=== PATIENT | female | born 1990 | race Caucasian/White ===

== ENCOUNTER 2018-04-14 06:03 | Inpatient (IN) | payer OTHER ==
[~2018-04-14] VITALS: Ht 170.2 cm; Wt 79.4 kg
[~2018-04-14 06:03] MED LIST: DOCUSATE SODIU100 M3 PO; IBUPROFEN800 M1 PO; PERCOCET 5-3251 EACH PO; PRENATAL TABLE1 EAC2 PO
[2018-04-14 06:37] VITALS: BP 109/58
--- NOTE | 2018-04-14 08:51 | Operative Report ---
Operative/Inv Procedure Report Surgery Date: 04/14/18 Name of Procedure: Repeat low flap a section via Pfannenstiel skin incision Pre-Operative Diagnosis: Previous section Term Post-Operative Diagnosis: Same macrosomia Estimated Blood Loss: scant Surgeon/Certified Welder: Hamlet OLIVIA,Arabella Loeraand [facility] Anesthesia: block Operative/Procedure Note Note: Procedure note patient was taken the operating room placed on position after adequate anesthesia patient placed in dorsolithotomy position vagina from dorsal fashion bladder was catheterized using Harvey patient was hit had a hip wedge timeout was performed through an old Pfannenstiel skin incision skin was cut was carried down to rectus fascia using a Bovie hemostasis was apparent on the rectus fascia and the rectus sheath was dissected bluntly off of the peritoneum peritoneum was entered bluntly low blade the Pierpont was placed and lower in the incision the visceral peritoneum of the uterus was dissected anteriorly to develop a bladder flap in the lower uterine segment uterus was nicked entered with the back of the knife dissected bluntly as well as sharply all instruments removed from the field the was delivered over the abdominal wall cord was around the baby's neck 3 was reduced cord was clamped cut the infant was handed to returns supervisor was waiting delivering to aid in resuscitation placenta was delivered manually noted to be intact was wiped clean with 2 wet dry last insurance free of adherent membranes oversewn running locked suture was indicated interrupted [id number] is well uses turned to abdominal cavity found to be hemostatic the peritoneum was reapproximated 0 the fascia was reapproximated to continue sutures #1 skin was reapproximated micki at the end the case urine was clear counts correct on patient was transferred to the unit and informed to the status
--- NOTE | 2018-04-14 08:53 | History & Physical Pre-Op ---
General Information and HPI MD Statement: I have seen and personally examined SUHAS JEFFRIES and documented this H&P. The patient is a 28 year old F who presented with a patient stated chief complaint of here to have a baby by section []. History of Present Illness: A 28-year-old 2 para 1001 on at 41 weeks' gestation who presents with late care previous section and having had intentions of trial of labor. Patient and I discussed the estimated weight of the and she has change her mind and decided to have a repeat section Allergies/Medications Allergies: Coded Allergies: No Known Allergies (04/09/16) Home Med list Vit No.130/Iron/FA ( Tablet) 27 MG IRON-800 MCG TABLET 1 TAB PO DAILY (Reported) Past History Medical History Isolation History: Standard Surgical History Pertinent Surgical History: N Past Family/Social History Psychosocial History Smoking Status: Never Smoked Review of Systems Review of Systems: -13 point review of systems as stated in the HPI Exam & Diagnostic Data Last 24 Hrs of Vital Signs/I&O Vital Signs Date Time Temp Pulse Resp B/P B/P Pulse O2 O2 Flow FiO2 Mean Ox Delivery Rate 04/14 0637 109/58 Intake & Output 04/14 1600 04/14 0800 04/14 0000 Intake Total Output Total Balance Patient 175 lb Weight Physical Exam: She is a petite white female HEENT anicteric Lungs clear Heart S1 and S2 Abdomen soft estimated weight is 4000 g Pelvic is 2 cm 90% vertex Extremities negative edema Assessment/Plan Assessment/Plan: Assessment is term previous section macrosomia 40+ weeks gestation plan is for section As Ranked By This Provider Problem List: 1.
[2018-04-15 08:53] LABS: ABSOLUTE BASOPHIL COUNT 0 /CUMM (0.0-0.2); ABSOLUTE EOSINOPHIL COUNT 0.1 /CUMM (0.0-0.7); ABSOLUTE GRANULOCYTE CT 6.8 /CUMM (1.4-6.5); ABSOLUTE LYMPH COUNT 2.7 /CUMM (1.2-3.4); ABSOLUTE MONOCYTE COUNT 1.1 /CUMM (0.10-0.60); BASOPHIL % 0.3 % (0.0-2.0); EOSINOPHIL % 0.6 % (0-5); GRANULOCYTE % 63.6 % (42.2-75.2); MEAN CORPUSCULAR HGB 29.7 PG (27.0-31.0); MEAN CORPUSCULAR HGB CONC 33.5 G/DL (33.0-37.0); MEAN CORPUSCULAR VOLUME 88.7 FL (81.0-99.0); MEAN PLATELET VOLUME 9.7 FL (7.4-10.4); PLATELET COUNT 189 /CUMM (130-400); RBC DISTRIBUTION WIDTH 17.1 % (11.5-14.5); RED BLOOD CELL CT 3.23 /CUMM (4.20-5.40); WHITE BLOOD CELL COUNT 10.7 /CUMM (4.8-10.8)
[2018-04-15 11:28] LABS: HEMATOCRIT 28.6 % (37-47)
--- NOTE | 2018-04-15 11:31 | PN- Post Delivery/GYN ---
Subjective Subjective: doing well Review of Systems: pos flatus Objective Last 24 Hrs of Vital Signs/I&O vss afebrile Physical Exam: abd soft NT, incision c/d/i ext: nt Assessment/Plan Assessment/Plan s/p c/s pod1 stable d/c sellers advance diet increase activity Problem List: 1. S/P
--- NOTE | 2018-04-16 11:21 | PN- Post Delivery/GYN ---
Subjective Subjective: No complaint, desires early discharge Review of Systems: Patient's passing flatus, ambulating, tolerating regular diet Objective Last 24 Hrs of Vital Signs/I&O Vital signs stable, afebrile Physical Exam: Abdomen is soft fundus firm Incision clean dry and intact Extremities nontender Assessment/Plan Assessment/Plan Status post postop day 2 she desiring early discharge discharge and is stable Plan: Discharge home Problem List: 1. S/P
[2018-04-16] MEDS ORDERED: PERCOCET 5-3251 EACH PO (11:24)
[2018-04-16] MEDS ORDERED: DOCUSATE SODIU100 M3 PO (11:24)
[2018-04-16] MEDS ORDERED: IBUPROFEN800 M1 PO (11:24)
== END 2018-04-16 17:35 | DRG 540 ==
LOC: GNO 06:03
PROVIDERS: Specialist
PROC: 10D00Z1 Extraction of Products of Conception, Low, Open Approach (ICD-10-PCS; principal; 2018-04-14)
DX: O36.63X0 Maternal care for excessive fetal growth, third trimester, not applicable or unspecified (principal); O34.211 Maternal care for low transverse scar from previous cesarean delivery; N85.8 Other specified noninflammatory disorders of uterus; O69.81X0 Labor and delivery complicated by cord around neck, without compression, not applicable or unspecified; Z3A.40 40 weeks gestation of pregnancy; Z37.0 Single live birth
CPT/HCPCS: GNOS; 81001; 87086; J0131; J0690; J1650; J1885; J2210; J7120

== ENCOUNTER 2018-04-24 20:23 | Emergency (ER) | payer OTHER ==
[~2018-04-24] VITALS: Ht 165.1 cm; Wt 65.8 kg
[2018-04-24 20:49] VITALS: BP 123/70
--- NOTE | 2018-04-24 20:50 | ED THROAT/DENTAL COMPLAINT ---
History of Present Illness General Chief Complaint: Sore Throat, Dental Pain Stated Complaint: TOOTH ACHE Source: patient, family, old records Exam Limitations: no limitations Vital Signs & Intake/Output Vital Signs & Intake/Output Vital Signs Date Time Temp Pulse Resp B/P B/P Pulse O2 O2 Flow FiO2 Mean Ox Delivery Rate 04/24 2049 98.2 80 16 123/70 99 Room Air Room Air Allergies Coded Allergies: No Known Allergies (04/24/18) Triage Note: PT TO TRIAGE WOTH RIGHT LOWER JAW PAIN WITH SWELLING. PT SAW HER DENTIST TODAY AND WAS RX ABX AND IBUPROPHEN. PT STATES PAIN HAS NOT BEEN CONTROLLED AND IS LOOKING FOR SOMETHING STRONGER Triage Nurses Notes Reviewed? yes : No Patient currently breastfeeds: No HPI: Patient is 10 days and is actively breast-feeding. Patient developed a toothache in her right lower molar area. Patient was seen by her dentist today and was put on ibuprofen and penicillin. Patient states that when she takes ibuprofen the pain gets better for about 2 hours but then the pain returns. The pain is throbbing in nature. There is no radiation. At its worst the pain is 8 out of 10. There are no fevers or chills. There is no difficulty breathing or swallowing. Past History Travel History Traveled to [place] past 21 day No Medical History Any Pertinent Medical History? none Neurological: NONE EENT: NONE Cardiovascular: NONE Respiratory: NONE Gastrointestinal: NONE Hepatic: NONE Renal: NONE Musculoskeletal: NONE Psychiatric: NONE Endocrine: NONE Blood Disorders: NONE Cancer(s): NONE CUSTOMER RELATIONS CONSULTANT/Reproductive: NONE Surgical History Surgical History: non-contributory Psychosocial History What is your primary language Taiwanese Tobacco Use: Never used ETOH Use: denies use Illicit Drug Use: denies illicit drug use Family History Hx Contributory? No Review of Systems Review of Systems Constitutional: Reports: no symptoms. EENTM: Reports: see HPI, tooth pain. Respiratory: Reports: no symptoms. Cardiovascular: Reports: no symptoms. GI: Reports: no symptoms. Neurological/Psychological: Reports: no symptoms. Immunologic/Allergic: Reports: no symptoms. Physical Exam Physical Exam General Appearance: well developed/nourished, alert, awake, anxious, moderate distress Head: atraumatic, normal appearance Eyes: Bilateral: PERRL, EOMI. Mouth/Throat: dental tenderness Neck: normal inspection, supple, full range of motion Cardiovascular/Respiratory: normal breath sounds, normal peripheral pulses, regular rate/rhythm, no respiratory distress Neurologic/Psych: no motor/sensory deficits, awake, alert, oriented x 3, normal gait, normal mood/affect Core Measures ACS in differential dx? No Sepsis Present: No Sepsis Focused Exam Completed? No Progress Differential Diagnosis: odontogenic abscess Plan of Care: Patient advised that any narcotic pain medication will require her to pump and dump for 24 hours. Patient does not want to do that and she wants to continue to breast-feed. Patient will take Tylenol as needed for breakthrough pain. Departure Departure Disposition: HOME OR SELF CARE Condition: Stable Clinical Impression Primary Impression: Toothache Additional Instructions: Take Tylenol as needed for breakthrough pain. Continue the antibiotics as prescribed. Return if symptoms worsen or for any concerns. Departure Forms: Customer Survey General Discharge Information
== END 2018-04-24 21:11 ==
LOC: ERH
DX: K08.89 Other specified disorders of teeth and supporting structures (principal)
CPT/HCPCS: 99282